=== PATIENT | female | born 1950 | race Caucasian/White ===

== ENCOUNTER 2020-02-12 07:45 | Outpatient (REF) | payer MEDICARE, OTHER, SELFPAY ==
[2020-02-12 11:27] LABS: MANUAL DIFF FLAG NO
[2020-02-12 11:32] LABS: Basophils Absolute Auto 0.1 X10*3/uL (0.0-0.2); Basophils Percent Auto 0.8 % (0-2); Eosinophils Absolute Auto 0.3 X10*3/uL (0.0-0.4); Eosinophils Percent Auto 4.2 % (0-4); Hematocrit 44.3 % (37-47); Hemoglobin 14.6 g/dl (12.0-16.0); Imm Gran Abs Auto 0.03 X10*3/uL (0.00-0.03); Imm Gran Pct Auto 0.5 % (0.0-0.4); Lymphocytes Absolute Auto 1.3 X10*3/uL (1.2-4.9); Lymphocytes Percent Auto 22.1 % (20-40); Mean Corpuscular Hemoglobin 31.4 pg (27.0-33.0); Mean Corpuscular Volume 95.3 fL (80-98); Mean Platelet Volume 11.5 fL (9.4-12.3); Monocytes Absolute Auto 0.6 X10*3/uL (0.1-1.2); Monocytes Percent Auto 9.7 % (2-11); Neutrophils Absolute Auto 3.7 X10*3/uL (2.0-8.3); Neutrophils Percent Auto 62.7 % (45-73); Platelet Count 184 X10*3/uL (160-400); Red Blood Count 4.65 X10*6/uL (4.20-5.50); Red Cell Distribution Width 13.4 % (11.0-16.0)
[2020-02-12 11:55] LABS: Estimated Average Glucose 131 mg/dL; Hemoglobin A1c % 6.2 %
[2020-02-12 12:19] LABS: Alanine Aminotransferase 21 U/L (0-31); Albumin Level 3.8 g/dL (3.5-5.0); Alkaline Phosphatase 66 U/L (39-117); Anion Gap 14 (12-20); Aspartate Amino Transferase 21 U/L (5-31); Bilirubin Total 0.6 mg/dL (0.0-1.0); Blood Urea Nitrogen 23 mg/dL (9-16); Calcium 9.4 mg/dL (8.4-10.2); Carbon Dioxide 30 mmol/L (22-29); Chloride 103 mmol/L (96-108); Cholesterol 174 mg/dL; Estimated Glomerular Filt Rate > 60; Glucose Fasting 91 mg/dL (60-99); HDL Cholesterol 38 mg/dL; LDL Cholesterol Calculated 99 mg/dl; Potassium 4.8 mmol/l (3.3-5.1); Sodium 142 mmol/L (135-145); Total Protein 6.2 g/dL (6.5-8.0); Triglycerides 186 mg/dL
== END 2020-02-12 07:46 | disposition home or self-care (01) ==
LOC: HO.MANLDS 07:45
PROVIDERS: PCP Internal Medicine; Visit Provider Internal Medicine
DX: R73.01 Impaired fasting glucose (principal); I10 Essential (primary) hypertension
CPT/HCPCS: 36415; 80053; 80061; 83036; 85025

== ENCOUNTER 2020-09-10 08:35 | Outpatient (REF) | payer MEDICARE, OTHER, SELFPAY ==
[2020-09-10 11:54] LABS: Alanine Aminotransferase 14 U/L (0-31); Albumin Level 3.9 g/dL (3.5-5.0); Alkaline Phosphatase 61 U/L (39-117); Anion Gap 11 (12-20); Aspartate Amino Transferase 22 U/L (5-31); Bilirubin Total 0.8 mg/dL (0.0-1.0); Blood Urea Nitrogen 20 mg/dL (9-16); Calcium 9.5 mg/dL (8.4-10.2); Carbon Dioxide 33 mmol/L (22-29); Chloride 102 mmol/L (96-108); Cholesterol 180 mg/dL; Estimated Glomerular Filt Rate 58; Glucose Fasting 88 mg/dL (60-99); HDL Cholesterol 45 mg/dL; LDL Cholesterol Calculated 100 mg/dl; Potassium 4.5 mmol/L (3.3-5.1); Sodium 141 mmol/L (135-145); Total Protein 6.3 g/dL (6.5-8.0); Triglycerides 175 mg/dL
[2020-09-10 12:00] LABS: Free T4 (Free Thyroxine) 0.86 ng/dL (0.71-1.85); Thyroid Stimulating Hormone 0.59 uIU/mL (0.32-4.0)
== END 2020-09-10 08:36 | disposition home or self-care (01) ==
LOC: HO.MANLDS 08:35
PROVIDERS: PCP Internal Medicine; Visit Provider Physician Assistant
DX: I48.91 Unspecified atrial fibrillation (principal); E03.9 Hypothyroidism, unspecified; R73.01 Impaired fasting glucose
CPT/HCPCS: 36415; 80053; 80061; 83735; 84439; 84443

== ENCOUNTER 2021-08-04 07:58 | Outpatient (REF) | payer MEDICARE, OTHER, SELFPAY ==
[2021-08-04 11:01] LABS: Hematocrit 47.3 % (37.0-47.0); Hemoglobin 15.1 g/dl (12.0-16.0); Mean Corpuscular HGB Conc 31.9 g/dl (31.0-35.0); Mean Corpuscular Hemoglobin 30.9 pg (27.0-33.0); Mean Corpuscular Volume 96.7 fL (80.0-98.0); Mean Platelet Volume 11.6 fL (9.4-12.3); Platelet Count 147 X10*3/uL (160-400); Red Blood Count 4.89 X10*6/uL (4.20-5.50); Red Cell Distribution Width 13.3 % (11.0-16.0); White Blood Count 7.3 X10*3/uL (4.8-10.8)
[2021-08-04 11:18] LABS: Estimated Average Glucose 131 mg/dL; Hemoglobin A1c % 6.2 %
[2021-08-04 11:56] LABS: Alanine Aminotransferase 17 U/L (0-31); Albumin Level 4.2 g/dL (3.5-5.0); Alkaline Phosphatase 55 U/L (39-117); Anion Gap 13 (12-20); Aspartate Amino Transferase 21 U/L (5-31); Bilirubin Total 0.7 mg/dL (0.0-1.0); Blood Urea Nitrogen 27 mg/dL (9-16); Calcium 10.4 mg/dL (8.4-10.2); Carbon Dioxide 32 mmol/L (22-29); Chloride 101 mmol/L (96-108); Cholesterol 185 mg/dL; Estimated Glomerular Filt Rate 52; Glucose Fasting 91 mg/dL (60-99); HDL Cholesterol 44 mg/dL; LDL Cholesterol Calculated 97 mg/dl; Potassium 4.8 mmol/L (3.3-5.1); Sodium 141 mmol/L (135-145); Triglycerides 221 mg/dL
[2021-08-04 12:18] LABS: Vitamin D 25-OH Total 36.1 ng/mL (>30)
[2021-08-04 12:23] LABS: Vitamin B12 414 pg/mL (200-900)
== END 2021-08-04 07:59 | disposition home or self-care (01) ==
LOC: HO.MANLDS 07:58
PROVIDERS: PCP Internal Medicine; Visit Provider Internal Medicine
DX: R73.01 Impaired fasting glucose (principal)
CPT/HCPCS: 36415; 80053; 80061; 82306; 82607; 83036; 83735; 84443; 85027

== ENCOUNTER 2023-02-18 08:02 | Outpatient (REF) | payer MEDICARE, OTHER, SELFPAY ==
[2023-02-18 13:35] LABS: MANUAL DIFF FLAG NO
[2023-02-18 13:44] LABS: Basophils Absolute Auto 0.1 X10*3/uL (0.0-0.2); Eosinophils Absolute Auto 0.3 X10*3/uL (0.0-0.4); Eosinophils Percent Auto 4.6 % (0-4); Hematocrit 40.7 % (37.0-47.0); Hemoglobin 12.6 g/dl (12.0-16.0); Imm Gran Abs Auto 0.02 X10*3/uL (0.00-0.03); Imm Gran Pct Auto 0.3 % (0.0-0.4); Lymphocytes Absolute Auto 1.3 X10*3/uL (1.2-4.9); Lymphocytes Percent Auto 18.3 % (20-40); Mean Corpuscular Hemoglobin 28.8 pg (27.0-33.0); Mean Corpuscular Volume 93.1 fL (80.0-98.0); Mean Platelet Volume 12.1 fL (9.4-12.3); Monocytes Absolute Auto 0.7 X10*3/uL (0.1-1.2); Monocytes Percent Auto 10.4 % (2-11); Neutrophils Absolute Auto 4.5 x10*3/uL (2.0-8.3); Neutrophils Percent Auto 65.4 % (45-73); Platelet Count 193 X10*3/uL (160-400); Red Blood Count 4.37 X10*6/uL (4.20-5.50); Red Cell Distribution Width 17.3 % (11.0-16.0); White Blood Count 6.9 X10*3/uL (4.8-10.8)
[2023-02-18 14:30] LABS: Estimated Average Glucose 131 mg/dL; Hemoglobin A1c % 6.2 % (<6.0)
[2023-02-18 14:34] LABS: Alanine Aminotransferase 16 U/L (0-31); Alkaline Phosphatase 62 U/L (39-117); Anion Gap 16 (12-20); Aspartate Amino Transferase 26 U/L (5-31); Bilirubin Total 0.5 mg/dL (0.0-1.0); Blood Urea Nitrogen 29 mg/dL (9-16); Calcium 10.7 mg/dL (8.4-10.2); Carbon Dioxide 29 mmol/L (22-29); Chloride 102 mmol/L (96-108); Cholesterol 175 mg/dL (<200); Estimated Glomerular Filt Rate 43; Glucose Random 109 mg/dL (60-115); HDL Cholesterol 41 mg/dL (>40); LDL Cholesterol Calculated 92 mg/dL (<100); Magnesium 2.1 mg/dL (1.6-2.6); Potassium 4.5 mmol/L (3.3-5.1); Sodium 142 mmol/L (135-145); Triglycerides 211 mg/dL (<150)
[2023-02-18 14:37] LABS: Thyroid Stimulating Hormone 0.91 uIU/mL (0.32-4.0); Vitamin D 25-OH Total 66.9 ng/mL (>30)
== END 2023-02-18 08:03 | disposition home or self-care (01) ==
LOC: HO.MANLDS 08:02
PROVIDERS: Visit Provider Internal Medicine
DX: R73.01 Impaired fasting glucose (principal); I48.91 Unspecified atrial fibrillation; E55.9 Vitamin D deficiency, unspecified
CPT/HCPCS: 36415; 80053; 80061; 82306; 83036; 83735; 84443; 85025

== ENCOUNTER 2023-08-05 08:34 | Outpatient (REF) | payer MEDICARE, OTHER, SELFPAY ==
[2023-08-05 13:34] LABS: Estimated Average Glucose 151 mg/dL; Hemoglobin A1c % 6.9 % (<6.0)
[2023-08-05 14:37] LABS: Free T4 (Free Thyroxine) 1.04 ng/dL (0.71-1.85); Thyroid Stimulating Hormone 0.78 uIU/mL (0.32-4.0); Vitamin D 25-OH Total 44.3 ng/mL (>30)
[2023-08-05 14:47] LABS: Folate 10.6 ng/mL (> or = 4.0); Vitamin B12 > 2000 pg/mL (200-900)
== END 2023-08-05 08:35 | disposition home or self-care (01) ==
LOC: HO.MANLDS 08:34
PROVIDERS: Visit Provider Internal Medicine
DX: E03.9 Hypothyroidism, unspecified (principal); E55.9 Vitamin D deficiency, unspecified; R73.01 Impaired fasting glucose
CPT/HCPCS: 36415; 82306; 82607; 82746; 83036; 84439; 84443

== ENCOUNTER 2023-11-21 08:10 | Outpatient (REF) | payer MEDICARE, OTHER, SELFPAY ==
[2023-11-21 13:52] LABS: Alanine Aminotransferase 14 U/L (0-31); Albumin Level 3.9 g/dL (3.5-5.0); Alkaline Phosphatase 46 U/L (39-117); Anion Gap 14 (12-20); Aspartate Amino Transferase 22 U/L (5-31); Bilirubin Total 0.5 mg/dL (0.0-1.0); Blood Urea Nitrogen 37 mg/dL (9-16); Calcium 10.4 mg/dL (8.4-10.2); Carbon Dioxide 29 mmol/L (22-29); Chloride 104 mmol/L (96-108); Estimated Glomerular Filt Rate 32; Glucose Random 92 mg/dL (60-115); Phosphorus 3.1 mg/dL (2.7-4.5); Potassium 4.3 mmol/L (3.3-5.1); Sodium 143 mmol/L (135-145); Total Protein 6.5 g/dL (6.5-8.0)
[2023-11-21 13:58] LABS: Thyroid Stimulating Hormone 0.95 uIU/mL (0.32-4.0)
[2023-11-21 14:04] LABS: Parathyroid Hormone Intact 23.3 pg/mL (8.7-77.1)
== END 2023-11-21 08:11 | disposition home or self-care (01) ==
LOC: HO.MANLDS 08:10
PROVIDERS: Visit Provider Internal Medicine
DX: Z13.89 Encounter for screening for other disorder (principal)
CPT/HCPCS: 36415; 80053; 83970; 84100; 84439; 84443

== ENCOUNTER 2023-12-26 14:51 | Outpatient (REF) | payer MEDICARE, OTHER, SELFPAY ==
[2023-12-26 18:17] LABS: Alanine Aminotransferase 12 U/L (0-31); Albumin Level 4.2 g/dL (3.5-5.0); Alkaline Phosphatase 67 U/L (39-117); Anion Gap 16 (12-20); Aspartate Amino Transferase 21 U/L (5-31); Bilirubin Total 0.4 mg/dL (0.0-1.0); Blood Urea Nitrogen 33 mg/dL (9-16); Carbon Dioxide 29 mmol/L (22-29); Chloride 100 mmol/L (96-108); Estimated Glomerular Filt Rate 33; Glucose Random 147 mg/dL (60-115); Potassium 5.3 mmol/L (3.3-5.1); Sodium 140 mmol/L (135-145); Total Protein 7.4 g/dL (6.5-8.0)
[2023-12-26 18:25] LABS: Vitamin D 25-OH Total 46.4 ng/mL (>30)
== END 2023-12-26 14:52 | disposition home or self-care (01) ==
LOC: HO.MANLDS 14:51
PROVIDERS: Visit Provider Internal Medicine
DX: E83.52 Hypercalcemia (principal)
CPT/HCPCS: 36415; 80053; 82306

== ENCOUNTER 2024-08-14 14:36 | Outpatient (REF) | payer MEDICARE, OTHER, SELFPAY ==
--- OUTSIDE RECORDS SUMMARY | 2024-08-14 17:46 | XMS_ITS | Continuity of Care Document ---
Author Organization [facility], [facility] Address [address] [place] [address] [place] [address] Assessment Encounter Date Assessment Date Assessment LastModified by Organization Details LastModified Time 08/14/2024 08/14/2024 Patient presente d to office today for their Medicare Annual Wellness Visit. Education was provided on healthy nutrition, including a diet rich in fruits and vegetables, minimizing simple carbohydrates, salt, and saturated fats. Encouraged regular cardiovascular exercise such as walking at least 30 minutes daily, 5 times per week. Emphasized preventive health measures and educated pt on fall prevention and community-based lifestyle interventions to help reduce health risks and promote healthy living. [email or web address] Not available 06/12/2024 09:18:10 Plan of Treatment Reminders Order Date Submit Date Provider Last Modified By Organization Details Last Modified Time Details Appointments MEDICARE ANNUAL WELLNESS 2024 02:00P M DR NAVARRO Not available Not available Not available FOLLOW UP 15 [address] NAVARRO Not available Not available Not available MEDICARE ANNUAL WELLNESS [address] NAVARRO Not available Not available Not available Lab HbA1c (hemoglob in A1c), blood 2024 025 [facility], [address] [place] [address], [place], [address], 08/14/2024 14:37:51 CBC w/ auto diff 2024 025 [facility], [address] [place] [address], [place], [address], 08/14/2024 14:37:52 CMP, serum or plasma 2024 025 [facility], [address] [place] [address], [id number], 08/14/2024 14:37:51 lipid panel, blood 2024 025 [facility], [address] [place] [address], [id number], 08/14/2024 14:37:51 CBC 2024 [facility], [address] [place] [address], [id number], 08/14/2024 14:37:51 vitamin B12, serum 2024 025 [facility], [address] [place] [address], [id number], 08/14/2024 14:37:52 TSH, serum or plasma 2024 025 [facility], [address] [place] [address], [id number], 08/14/2024 14:37:51 Referral None recorded. Procedures None recorded. Surgeries None recorded. Imaging MAMMO, screening , digital, bilateral 2024 025 [email or web address] [facility], [address] [place] [address], [id number], 08/14/2024 14:48:52 bone density 2024 025 [facility], [address] [place], [address], 08/14/2024 14:48:52 Medication Orders None recorded. Patient TargetsNo targets recorded. Patient Instructions Encounter Date Encounter Id Patient Instructions Last Modified By Organization Details Last Modified Time 08/14/2024 [id number] learning about type 2 diabetes Not available 08/14/2024 14:31:39 type 2 diabetes: care instructions Not available 08/14/2024 14:31:40 advance care planning: care instructions Not available 08/14/2024 14:31:40 atrial fibrillation: care instructions Not available 08/14/2024 14:31:40 hypothyroidism: care instructions Not available 08/14/2024 14:31:40 Discussed and explained advance directives such as standard forms to the {{patient* caregi josefina patient and caregiver}}. Face to face discussion lasted for a duration of _55__ minutes. Not available 08/14/2024 14:31:22 Reason for Referral None Reported. Problems Name Problem SNOMED Code Status Onset Date Resolution Date Notes Provider Name and Address Organization Details Recorded Time Osteoart hritis of knee 883200774 Active 2017 Not Available [facility] 0 02:44:19 [facility] hyperten jina 52285245 Active 2017 Not Available [facility] 0 02:44:19 Impaired fasting glycemia 646706023 Active 2017 Not Available [facility] 0 02:44:19 Atrial fibrilla tion 59750916 Active 2017 coumadin managed Not Available [facility] 0 02:44:19 Helicoba cter pylori gastroin testinal tract infectio n 254521311 Active 2017 Not Available [facility] 0 02:44:19 Bradyarr hythmia 447042248 Active 2017 Not Available [facility] 0 02:44:19 Sick sinus syndrome 66328018 Active 2017 Not Available [facility] 0 02:44:19 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 Not Available [facility] 0 02:44:19 Divertic ular disease 875828874 Active 2017 Not Available [facility] 0 02:44:19 History of tobacco use 37869930408 03 Active 2017 1980s Not Available [facility] 0 02:44:19 History of cardiove rsion 17894946319 108 Active 2017 with pacemaker 2016 Not Available [facility] 0 02:44:19 Pulmonar y hyperten jina 69609455 Active 2018 Not Available [facility] 0 02:44:19 Peripros thetic fracture of hip 85194649552 914567 Active 2021 JORY JANG [address] [place], [address], [facility] 2 15:31:41 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 Bill Navarro, DO [address] [place] [address], [phone], [facility] 2 16:00:05 Secondar y peripher al neuropat hy 047997 Active 2022 Bill Navarro, DO [address] [place] [address], [address], [facility] 3 11:35:16 Asthmati c bronchit is 543788111 Active 2022 Bill Navarro, DO [address] [place] [address], [address], [facility] 3 14:55:21 Chronic bronchit is 10104826 Active 2022 Bill Navarro, DO [address] [place] [address], [address], [facility] 3 11:48:43 Vitamin D deficien cy 00815994 Active 2022 Bill Navarro, DO [address] [place] [address], [address], [facility] 3 11:13:55 Orthosta tic hypotens ion 11136633 Active 2022 Bill Navarro DO [address] [place], [address], [facility] 3 11:15:54 Postural orthosta tic tachycar karla syndrome 259056073 Active 2022 Bill Navarro, DO [address] [place] [address], [address], [facility] 3 11:05:54 Degenera tive joint disease of hand 39911504 Active 2023 Bill Navarro, DO [address] [place] [address], [address], [facility] 4 11:17:50 Type 2 diabetes mellitus 52275687 Active 2023 JORY JANG [address] [place] [address], [address], [facility] 4 11:05:39 Hypercal cemia 96598612 Active 2023 Bill Navarro DO [address] [place] [address], [address], [facility] 4 20:58:24 Renal insuffic iency 672811884 Active 2023 Bill Navarro, DO [address] [place] [address], [address], [facility] 4 12:08:05 Cellulit is of toe of left foot Active 2023 JORY JANG [address] [place] [address], [address], [facility] 4 11:50:11 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 Procedures Surgical History Date Name Laterality Status Provider Name and Address Organization Details Recorded Time 018 Corticosteroid Injection completed Bill Navarro DO [address] [place] [address], [address], [facility] 02/03/2018 12:01:37 018 Corticosteroid Injection completed Bill Navarro DO [address] [place] [address], [phone], [facility] 09/19/2017 14:20:40 Imaging Results None recorded. Procedure Notes None recorded. Medical Equipment None Reported. Allergies Allergen ID Allergen Name Allergen Category Reaction Reaction Severity Criticality Documentation Date Start Date Code Code System Note Provider Name and Address Organization Details Recorded Time 303 lisinopri l medicatio n Not available Not available Not available 07/12/2017 53592 [facility] 8 10:24[facility]13 304 albuterol medicatio n Not available Not available [facility] 07/12/2017 435 RxNorm hx afib not an aller gy Bill GwenFaith Florentinclaudia, DO [address] [place] [address], [address], [facility] 3 22:04:28 305 flecainid e medicatio n Not available Not available Not available 07/12/2017 4441 [facility] 8 10:24:25 4150 Multaq medicatio n edema severe Not available 02/27/2020 23287 9 RxNorm Bill HidalgoFaith Ganesh DO [address] [place] [address], [address], [facility] 0 12:15:24 4151 diltiazem Not available edema severe Not available 02/27/2020 3443 RxNorm Bill HidalgoFaith Lermaclaudia DO [address] [place] [address], [address], [facility] 0 12:15:40 8511 pregabali n medicatio n Not available Not available Not available 03/20/2024 62193 2 RxNorm JORY JANG [address] [place], [address], [facility] 4 11:51:36 Medications Name Sig Start Date Stop Date Status Note LastModified by Organization Details LastModified Time amoxicillin 500 mg capsule TAKE 1 CAPSULE BY MOUTH THREE TIMES DAILY FOR 10 DAYS 08/02 completed Not Available Not Available Not Available furosemide 40 mg tablet TAKE 1 TABLET BY MOUTH DAILY active Not Available Not Available No t Available prednisone 10 mg tablet 08/14 completed Not Available Not Available Not Available azithromyci n 250 mg tablet TAKE 2 TABLETS BY MOUTH ON DAY 1 THEN TAKE 1 TABLET BY MOUTH ONCE FOR 4 DAYS 08/10 completed Not Available Not Available Not Available metoprolol tartrate 100 mg tablet Take 1 tablet every day by oral route. 09/02 completed Not Available Not Available Not Available fluconazole 150 mg tablet TAKE 1 TABLET BY MOUTH EVERY DAY FOR 7 DAYS active Not Available Not Available No t Available amiodarone 200 mg tablet 08/02 completed Not Available Not Available Not Available benzonatate 200 mg capsule TAKE 1 CAPSULE BY MOUTH THREE TIMES DAILY 08/02 completed Not Available Not Available Not Available metoprolol succinate ER 200 mg tablet,exte nded release 24 hr 02/26 completed Not Available Not Available Not Available dofetilide 250 mcg capsule TAKE 1 CAPSULE BY MOUTH TWICE DAILY 08/02 completed Not Available Not Available Not Available sulfamethox azole 800 mg-trimetho prim 160 mg tablet 08/14 completed Not Available Not Available Not Available tramadol 50 mg tablet TAKE 1 TO 2 TABLETS BY MOUTH EVERY 6 HOURS NEEDED FOR MILD PAIN. DO NOT EXCEED 8 TABLETS (400MG) PER DAY. 12/21 completed Not Available Not Available Not Available ketorolac 0.5 % eye drops PLACE 1 DROP IN SURGICAL EYE THREE TIMES A DAY FOR 3 WEEKS FOLLOWING CATARACT SURGERY IN EACH EYE active Not Available Not Available No t Available amoxicillin 875 mg tablet TAKE 1 TABLET BY MOUTH EVERY 12 HOURS FOR 10 DAYS 04/08 /2025 completed Not Available Not Available Not Available hydromorpho ne 2 mg tablet TAKE 1 TO 2 TABLETS BY MOUTH EVERY 4 HOURS NEEDED FOR MODERATE TO SEVERE PAIN 12/21 completed Not Available Not Available Not Available magnesium oxide 400 mg (241.3 mg magnesium) tablet TAKE 1 TABLET BY MOUTH DAILY active Not Available Not Available No t Available Aldactone 25 mg tablet Take 1 tablet every day by oral route. 02/23 completed Not Available Not Available Not Available levothyroxi ne 50 mcg tablet TAKE 1 TABLET BY MOUTH DAILY active Not Available Not Available No t Available pantoprazol e 40 mg tablet,mazin yed release take 1 tablet by mouth once daily 08/14 completed Not Available Not Available Not Available gabapentin 300 mg capsule TAKE 1 CAPSULE BY MOUTH THREE TIMES DAILY active Not Available Not Available No t Available cephalexin 500 mg tablet TAKE 1 TABLET BY MOUTH EVERY 6 HOURS FOR 12 DAYS 08/14 completed Not Available Not Available Not Available diltiazem CD 120 mg capsule,ext ended release 24 hr 02/26 completed Not Available Not Available Not Available codeine 10 mg-guaifene sin 100 mg/5 mL oral liquid TAKE 10 ML BY MOUTH EVERY 4 HOURS NEEDED 08/14 completed Not Available Not Available Not Available digoxin 125 mcg (0.125 mg) tablet Take 1 tablet every day by oral route for 90 days. 02/26 completed Not Available Not Available Not Available gabapentin 100 mg capsule TAKE 1 CAPSULE BY MOUTH EVERY MORNING active Not Available Not Available No t Available warfarin 1 mg tablet 11/22 completed Not Available Not Available Not Available levofloxaci n 500 mg tablet TAKE 1 TABLET BY MOUTH EVERY 24 HOURS FOR 10 DAYS 08/02 completed Not Available Not Available Not Available methylpredn isolone 4 mg tablets in a dose pack FOLLOW PACKAGE DIRECTION S 08/02 completed Not Available Not Available Not Available SSD 1 % topical cream APPLY A 1/16 INCH (1.5 MM) THICK LAYER TO ENTIRE BURN AREA BY TOPICALRO TRACEY 2 TIMES PER DAY 07/24 completed Not Available Not Available Not Available spironolact one 50 mg tablet TAKE 1 TABLET BY MOUTH EVERY DAY active Not Available Not Available No t Available Vitamin C 500 mg capsule,ext ended release Take 1 capsule every day by oral route. active Not Available Not Available No t Available enoxaparin 30 mg/0.3 mL subcutaneou s syringe 11/22 completed Not Available Not Available Not Available metoprolol tartrate 25 mg tablet Take 1 tablet twice a day by oral route for 90 days. 02/26 completed Not Available Not Available Not Available levalbutero l HFA 45 mcg/actuati on aerosol inhaler 08/13 completed Not Available Not Available Not Available Boostrix Tdap 2.5 Lf unit-8 mcg-5 Lf/0.5 mL intramuscul ar syringe 09/02 completed Not Available Not Available Not Available pregabalin 75 mg capsule TAKE 1 CAPSULE BY MOUTH TWICE DAILY 03/13 completed Not Available Not Available Not Available melatonin 25mg at bedtime active Not Available Not Available No t Available calcium 1000 units every day. 11/21 completed Not Available Not Available Not Available vitamin B complex once per day 08/13 completed Not Available Not Available Not Available furosemide 20 mg active Not Available Not Av ailable Not Available multivitami n once per day active Not Available Not Available No t Available Symbicort 160 mcg-4.5 mcg/actuati on HFA aerosol inhaler INHALE 1 PUFF INTO THE LUNGS TWICE A DAY FOR 30 DAYS 08/02 completed Not Available Not Available Not Available diclofenac 1 % topical gel 02/26 completed Not Available Not Available Not Available Multaq 400 mg tablet 02/26 completed Not Available Not Available Not Available Pradaxa 150 mg capsule TAKE 1 CAPSULE BY MOUTH TWICE DAILY active Not Available Not Available No t Available Pradaxa 75 mg capsule TAKE 1 CAPSULE BY MOUTH TWO TIMES A DAY FOR 7 DAYS THEN INCREASE TO HOME DOSE OF 150 MG TWO TIMES A DAY 12/21 completed Not Available Not Available Not Available Breo Ellipta 100 mcg-25 mcg/dose powder for inhalation INHALE 1 PUFF BY MOUTH EVERY DAY 08/02 completed Not Available Not Available Not Available Digox 250 mcg (0.25 mg) tablet Take one tablet every day. 07/24 completed Not Available Not Available Not Available metoprolol tartrate 75 mg tablet TAKE 1 TABLET BY MOUTH TWICE DAILY 2024 active Not Available Not Available Not Avai lable Trelegy Ellipta 100 mcg-62.5 mcg-25 mcg powder for inhalation INHALE 1 PUFF INTO THE LUNGS EVERY DAY active Not Available Not Available No t Available Shingrix (PF) 50 mcg/0.5 mL intramuscul ar suspension, kit 02/26 completed Not Available Not Available Not Available Ozempic 0.25 mg or 0.5 mg (2 mg/1.5 mL) subcutaneou s pen injector Inject 0.25 mg every week by subcutane ous route for 30 days. 2023 active Not Available Not Available Not Avai lable Wixela Inhub 100 mcg-50 mcg/dose powder for inhalation Inhale 1 puff twice a day by inhalatio n route. 08/30 completed Not Available Not Available Not Available BinaxNOW COVID-19 Ag Self Test kit TEST DIRECTED TODAY 03/16 completed Not Available Not Available Not Available Ozempic 0.25 mg or 0.5 mg (2 mg/3 mL) subcutaneou s pen injector active Not Available Not Available Not Available Vitals Date Recorded Body height Body mass index (BMI) Body weight Heart rate Oxygen saturation Oxygen saturation in Arterial blood by Pulse oximetry Systolic blood pressure Diastolic blood pressure Provider Name and Address Organization Details Last Updated DateTime 5 163.83 cm 40.1 kg/m2 984044. 39 g 80 /min 93 % 93 % 120 mm[Hg] 68 mm[Hg] Mandi Mack [facility] 5 13:57:34 Social History Question Answer Notes LastModified by Organizat ion Details LastModified Time Tobacco Smoking Status Former Smoker Not Available [facility] 03/11/2020 03:36:23 What Was The Date Of Your Most Recent Tobacco Screening? 08/14/2024 [email or web address] Information not available 08/14/2024 Do You Or Have You Ever Used Any Other Forms Of Tobacco Or Nicotine? No [email or web address] Information not available 02/06/2024 Sex: Unknown Functional Status None recorded. Mental Status None recorded. Family History Nothing Reported. Medical History No medical history recorded. Gynecological HistoryNo gynecological history recorded. Obstetrics History GPAL:G 0 P 0 0 0 0 Immunizations Vaccine Type Date Status Note Provider Nam e and Address Organization Details Recorded Time Influenza, split virus, quadrivalent, preservative 1 completed [facility] 08/13/2022 11:22:35 Influenza, split virus, quadrivalent, preservative 2 completed Marianna Gencarelle null, [facility] 08/13/2022 11:22:35 Influenza, split virus, quadrivalent, preservative 8 completed Marianna Gencarelle null, [facility] 08/13/2022 11:22:35 Influenza, split virus, quadrivalent, preservative 9 completed Marianna Gencarelle null, [facility] 08/13/2022 11:22:35 zoster, unspecified formulation 9 completed Marianna Gencarelle null, [facility] 08/13/2022 11:22:35 Influenza, split virus, quadrivalent, preservative 0 completed Marianna Gencarelle null, [facility] 08/13/2022 11:22:35 zoster recombinant 0 completed Marianna Gencarelle null, [facility] 08/13/2022 11:22:35 Tdap 0 completed Melany Johnson [facility] 02/29/2020 13:38:26 Pneumococcal conjugate PCV 13 6 completed Marianna Gencarelle [facility] 08/13/2022 11:22:35 Tdap 4 completed Melany sanches, [facility] 01/04/2018 09:42:45 zoster, unspecified formulation 4 completed Marianna Gencarelle null, [facility] 08/13/2022 11:22:35 pneumococcal polysaccharide PPV23 9 completed Marianna Gencarelle null, [facility] 08/13/2022 11:22:35 COVID-19, mRNA, LNP-S, PF, 100 mcg/0.5mL dose or 50 mcg/0.25mL dose 1 completed Marianna Gencarelle null, [facility] 08/13/2022 11:22:35 COVID-19, mRNA, LNP-S, PF, 100 mcg/0.5mL dose or 50 mcg/0.25mL dose 1 completed Marianna sanches [facility] 08/13/2022 11:22:35 Past Encounters Encounter ID Performer Location Encounter Start Date Encounter Closed Date Diagnosis/Indication Diagnosis SNOMED-CT Code Diagnosis ICD10 Code Diagnosis Note [id number] Bill Navarro DO [facility] [address],[place] [address] 08/14/2024 13:42:15 08/14/2024 14:48:52 Adult health examination 512158479 Z00.00 doing ok ecxcept for her foot still an issue doesnt want surgery wishes to cont Screening for cardiovascular system disease 153079149 Z13.6 Screening for osteoporosis 144068431 Z13.820 Screening mammography 24 810992 Z12.31 Atrial fibrillation 4943 6004 I48.0 currently has been sporadic episodes at best last a few sec PRIOR last visit: as noted she was really dong well and despite the severe trauma of the femur fractureno w she is on dofetilide for anti arrythmic and she seems to think it is causing a neuropathy of her feet and fingersPRI OR: now had av maryellen; ablation now with pacemaker and tikosyn (dofetilid e) per cardiol and has been stableas noted we will ask cardio re-stoppin g the tikosyn as discussed she stacy ask but will not stop the tikosyn until told to do sotikosyn is per pt bothering her some but cardiology did not want to stop this Essential hypertension 38484470 I10 stable and has decent med regimen Hypothyroidism 65874465 E03.9 -continue levothyrox ine and is going to need a follow up lab Neuropathy due to type 2 diabetes mellitus 7814054999 70376 E11.42 unfortunat [place] not having any luck with the meds Type 2 karla betes mellitus 16325734 E11.9 a1c is still pending Health Concerns Section Related Observation LastModified by Organization Detai ls LastModified Time None Recorded Concern Status LastModified by Organization Details LastModified Time None Recorded Payers Encounter Date Sequence Insurance Name Policy Number Policy Bravo Covered Member ID Bravo Member ID Guarantor Name 08/14/2024 1 [place] [employer] Sravani Borrego [id number] Sravani Borrego 08/14/2024 2 [facility] [id number] Sravani Borrego [id number] Sravani Borrego Notes Date Note Type Note Provider Name a nd Address Organization Details Recorded Time 5 text/html Medicare Annual Wellness VisitReported bypatient.Diet and Nutrition:healthy diet Fracture Risk:no history of fractures; no recent explained fracture; no sudden unexplained fractures; no previous musculoskeletal injuries Physical Activity:exercises on a regular basis; recent increase in physical activity; good physical condition Depression Risk:never feels sad, empty, or tearful; no loss of interest in activities; no significant changes in weight; no sleep disturbances or insomnia; no agitation; no loss of energy; no feelings of worthlessness or guilt; no thoughts of suicide; no history of depression; no history of mood disorders Orientation:no disorientation to time; no disorientation to date; no disorientation to place Concentration and Memory:no decreased concentrating ability; no memory lapses or loss; does not forget words Speech/Motor difficulties:no speech difficulties; no difficulty expressing formulated concepts; no difficulty with fine manipulative tasks; no difficulty writing/copying; no slowed reaction time; does not knock things over when trying to pick them up Hearing:no loss of hearing Vision:no vision problems Activities of Daily Living:able to bathe with limited or no assistance; able to contol urination and bowels; able to dress with limited or no assistance; able to feed self with limited or no assistance; able to get out of chair or bed with limited or no assistance; able to groom with limited or no assistance; able to toilet with limited or no assistance Instrumental Activities of Daily Living:able to do house work with limited or no assistance; able to grocery shop with limited or no assistance; able to manage medications with limited or no assistance; able to manage money with limited or no assistance; able to prepare meals with limited or no assistance; able to use the phone with limited or no assistance Falls Risk Assessment:no frequent falls while walking; no fall in the past year; no fall since last visit; no dizziness/vertigo Home Safety:no unsafe alfred hazzards; no unsafe stairs; no unsafe gas appliances; working smoke/CO detectors; wears protective head gear for biking/high velocity; use of seatbelts; practicing 'safer sex'; no vision or hearing loss while driving; no fire arms; has hand bars in the bathroom/shower; good lighting in the home here for mwv and is doing pretty goodtroubled by her bunion in left foot using silvadene with good response Bill Navarro, DO [address], [place], [address], [facility] 08/14/2024 14:35:08 OBGyn Episode No OBEpisode recorded.
--- OUTSIDE RECORDS SUMMARY | 2024-08-14 17:46 | XMS_ITS | Data Portability ---
Author Organization [facility] Address [address] [place] [address] Assessment Encounter Date Assessment Date Assessment LastModified by Organization Details LastModified Time 11/22/2023 11/22/2023 [id number] [place] [id number] (BOLT MAN) [facility] MODERATE MUST MEET 2 OUT OF 3 ELEMENTS: PROBLEMS, DATA OR RISK ELEMENT 1: PROBLEMS ADDRESSED 1 OR MORE CHRONIC ILLNESS WITH EXACERBATION OR 2 OR MORE STABLE CHRONIC ILLNESSES OR 1 UNDIAGNOSED NEW PROBLEM OR 1 ACUTE ILLNESS W/SYMPTOMS OR 1 ACUTE COMPLICATED INJURY ELEMENT 2: DATA MUST MEET 1 OF 3 CATEGORIES CATEGORY 1: REVIEW OF PRIOR EXTERNAL NOTES, REVIEW OF RESULTS, ORDERING OF EACH TEST, ASSESSMENT REQUIRING INDEPENDENT HISTORIAN OR CATEGORY 2: INDEPENDENT INTERPRETATION OF TESTS BY ANOTHER PHYSICIAN OR SPECIALIST OR CATEGORY 3: DISCUSSION OF MGT OR TEST INTERPRETATION W/EXTERNAL PHYSICIAN OR SPECIALIST ELEMENT 3: RISK RISK OF COMPLICATIONS AND/OR MORBIDITY OR MORTALITY OF PATIENT MANAGEMENT PROVIDER MUST THOROUGHLY DOCUMENT EACH ELEMENT THAT IS COVERED Not available 11/22/2023 14:04:40 02/06/2024 02/06/2024 [id number] [place] [id number] (BOLT MAN) [facility] MODERATE MUST MEET 2 OUT OF 3 ELEMENTS: PROBLEMS, DATA OR RISK ELEMENT 1: PROBLEMS ADDRESSED 1 OR MORE CHRONIC ILLNESS WITH EXACERBATION OR 2 OR MORE STABLE CHRONIC ILLNESSES OR 1 UNDIAGNOSED NEW PROBLEM OR 1 ACUTE ILLNESS W/SYMPTOMS OR 1 ACUTE COMPLICATED INJURY ELEMENT 2: DATA MUST MEET 1 OF 3 CATEGORIES CATEGORY 1: REVIEW OF PRIOR EXTERNAL NOTES, REVIEW OF RESULTS, ORDERING OF EACH TEST, ASSESSMENT REQUIRING INDEPENDENT HISTORIAN OR CATEGORY 2: INDEPENDENT INTERPRETATION OF TESTS BY ANOTHER PHYSICIAN OR SPECIALIST OR CATEGORY 3: DISCUSSION OF MGT OR TEST INTERPRETATION W/EXTERNAL PHYSICIAN OR SPECIALIST ELEMENT 3: RISK RISK OF COMPLICATIONS AND/OR MORBIDITY OR MORTALITY OF PATIENT MANAGEMENT PROVIDER MUST THOROUGHLY DOCUMENT EACH ELEMENT THAT IS COVERED Not available 02/06/2024 11:20:53 06/11/2024 06/11/2024 Patient agreed and verbally consents to this audio and video Telehealth appt via a secure platform [email or web address] Not available 06/11/2024 15:06:08 08/14/2024 08/14/2024 Patient presente d to office [...] HbA1c (hemoglob in A1c), blood 2024 025 [facility], [address] [place] [address], [id number], 08/14/2024 14:37:51 CBC w/ auto diff 2024 025 [facility], [address] [place] [address], [id number], 08/14/2024 14:37:52 CMP, serum or plasma 2024 025 [facility], [address] [place] [address], [address], 08/14/2024 14:37:51 lipid panel, blood 2024 025 [facility], [address] [place] [address], [address], 08/14/2024 14:37:51 CBC 2024 025 [facility], [address] [place] [address], [address], 08/14/2024 14:37:51 vitamin B12, serum 2024 025 [facility], [address] [place] [address], [address], 08/14/2024 14:37:52 TSH, serum or plasma 2024 025 [facility], [address] [place] [address], [address], 08/14/2024 14:37:51 CMP, serum or plasma 2023 024 [facility], [address] [place] [address], [address], 12/27/2023 11:13:20 vitamin D, 25-hydrox y, total, serum 2023 024 [facility], [address] [place] [address], [address], 11/22/2023 14:17:36 Referral None recorded. Procedures None recorded. Surgeries None recorded. Imaging MAMMO, screening , digital, bilateral [address] [facility], [address] [place] [address], [id number], 08/14/2024 14:48:52 bone density [address] [facility], [address] [place] [address], [id number], 08/14/2024 14:48:52 Medication Orders prednison e 10 mg tablet 2024 025 [facility], [address] [place] [address], [id number], 08/14/2024 13:56:24 codeine 10 mg-guaife nesin 100 mg/5 mL oral liquid 2024 025 [facility]85598, [address], [place], [id number], 08/14/2024 13:55:54 amoxicill in 875 mg tablet 2024 025 [facility]18061, [address], [place], [id number], 08/14/2024 13:55:43 gabapenti n 100 mg capsule 2023 024 [facility]15183, [address], [place], [id number], 03/20/2024 14:29:52 cephalexi n 500 mg tablet [id number] [facility] [facility]52218, [address], [place], [id number], 08/14/2024 13:55:39 pregabali n 75 mg capsule 2023 024 [facility] #[id number], [address], [place], [phone], 03/13/2024 21:19:37 Patient TargetsNo targets recorded. Patient Instructions Encounter Date Encounter Id Patient Instructions Last Modified By Organization Details Last Modified Time 11/22/2023 [id number] hypercalcemia: care instructions Not available 11/22/2023 14:07:54 learning about type 2 diabetes Not available 11/22/2023 14:07:54 type 2 diabetes: care instructions Not available 11/22/2023 14:07:55 high blood pressure: care instructions Not available 11/22/2023 14:07:55 learning about high blood pressure Not available 11/22/2023 14:07:54 atrial fibrillation: care instructions Not available 11/22/2023 14:07:54 08/14/2024 [id number] learning about type 2 diabetes Not available [...] 08/14/2024 14:31:22 Reason for Referral None Reported. Results Created Date Observation Date Name Description Value Unit Range Abnormal Flag Note LastModifiedBy Organization Detail LastModifiedTime 11/21/19 24 11/16/2023 MAMMO , scree mohamud, digit al, bilat eral No observ ation record ed. [address], [place], [address], 11/21/2023 09:48:54 Result Notes None recorded. Problems Name Problem SNOMED Code Status Onset Date Resolution Date Notes Provider Name and Address Organization Details Recorded Time Osteoart hritis of knee 724811823 Active 2017 Not Available [facility] 0 02:44:19 [facility] hyperten jina 87137813 Active 2017 Not Available [facility] 0 02:44:19 Impaired fasting glycemia 852167790 Active 2017 Not Available [facility] 0 02:44:19 Atrial fibrilla tion 48375709 Active 2017 coumadin managed Not Available [facility] 0 02:44:19 Helicoba cter pylori gastroin testinal tract infectio n 619950572 Active 2017 Not Available [facility] 0 02:44:19 Bradyarr hythmia 013935303 Active 2017 Not Available [facility] 0 02:44:19 Sick sinus syndrome 94209171 Active 2017 Not Available [facility] 0 02:44:19 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 Not Available [facility] 0 02:44:19 Divertic ular disease 680904644 Active 2017 Not Available [facility] 0 02:44:19 History of tobacco use 49836385737 03 Active 2017 1980s Not Available [facility] 0 02:44:19 History of cardiove rsion 79062848984 108 Active 2017 with pacemaker 2016 Not Available [facility] 0 02:44:19 Pulmonar y hyperten jina 27481594 Active 2018 Not Available [facility] 0 02:44:19 Peripros thetic fracture of hip 09213790594 469711 Active 2021 JORY JANG [address] [place], [address], [facility] 2 15:31:41 Idiopath ic peripher al neuropat hy 32653051 Active 2021 Bill Navarro, DO [address] [place] [address], [address], [facility] 2 16:00:05 Secondar y peripher al neuropat hy 298930 Active 2022 Bill Navarro, DO [address] [place], [address], [facility] 3 11:35:16 Asthmati c bronchit is 968981425 Active 2022 Bill Navarro DO [address] [place], [address], [facility] 3 14:55:21 Chronic bronchit is 98011770 Active 2022 Bill Navarro, DO [address] [place] [address], [address], [facility] 3 11:48:43 Vitamin D deficien cy 13526719 Active 2022 Bill Navarro, DO [address] [place] [address], [address], [facility] 3 11:13:55 Orthosta tic hypotens ion 13375608 Active 2022 Bill Navarro, DO [address] [place] [address], [address], [facility] 3 11:15:54 Postural orthosta tic tachycar karla syndrome 901207748 Active 2022 Bill Navarro, DO [address] [place] [address], [address], [facility] 3 11:05:54 Degenera tive joint disease of hand 43240052 Active 2023 Bill Navarro, DO [address] [place] [address], [address], [facility] 4 11:17:50 Type 2 diabetes mellitus 88998535 Active 2023 JORY JANG [address] [place] [address], [address], [facility] 4 11:05:39 Hypercal cemia 67833621 Active 2023 Bill Navarro, DO [address] [place] [address], [address], [facility] 4 20:58:24 Renal insuffic iency 297974963 Active 2023 Bill Navarro DO [address] [place] [address], [address], [facility] 4 12:08:05 Cellulit is of toe of left foot Active 2023 JORY JANG [address] [place] [address], [address], [facility] 4 11:50:11 Neuropat hy due to type 2 diabetes mellitus 32512511237 9106 Active 2023 JORY JANG [address] [place] [address], [address], [facility] 4 11:52:17 Recurren t candidia sis of vagina 263453026 Active 2024 Bill Navarro DO [address] [place] [address], [address], [facility] 5 14:05:29 Acute bacteria l bronchit is 790863316 Active 2024 JORY JANG [address] [place] [address], [address], [facility] 5 15:01:39 Problem Notes None recorded. Procedures Surgical History Date Name Laterality Status Provider Name and Address Organization Details Recorded Time 018 Corticosteroid Injection completed Bill Navarro DO [address] [place] [address], [address], [facility] 02/03/2018 12:01:37 018 Corticosteroid Injection completed Bill Navarro DO [address] [place] [address], [address], [facility] 09/19/2017 14:20:40 Imaging Results Imaging Date Name Status LastModified by Organiz ation Details LastModified Time 11/16/2023 MAMMO, screening, digital, bilateral completed [email or web address] [address], [place], [address], 11/21/2023 09:48:54 Procedure Notes None recorded. Medical Equipment None Reported. Allergies Allergen ID Allergen Name Allergen Category Reaction Reaction Severity Criticality Documentation Date Start Date Code Code System Note Provider Name and Address Organization Details Recorded Time 303 lisinopri l medicatio n Not available Not available Not available 07/12/[address] [facility] 8 10:24:13 304 albuterol medicatio n Not available Not available low 07/12/2017 435 RxNorm hx afib not an aller gy Bill Navarro, DO [address] [place], [address], [facility] 3 22:04:28 305 flecainid e medicatio n Not available Not available Not available 07/12/2017 4441 RxNorm Melany Johnson [facility] 8 10:24:25 4150 Multaq medicatio n edema severe Not available 02/27/2020 86177 9 RxNorm Bill Navarro, DO [address] [place], [address], [facility] 0 12:15:24 4151 diltiazem Not available edema severe Not available 02/27/2020 3443 RxNorm Bill Navarro, DO [address] [place], [address], [facility] 0 12:15:40 8511 pregabali n medicatio n Not available Not available Not available 03/20/2024 01424 2 RxNorm JORY JANG [address] [place], [address], [facility] 4 11:51:36 Medications [...] MOUTH EVERY 12 HOURS FOR 10 DAYS 08/14 completed Not Available Not Available [...] LAYER TO ENTIRE BURN AREA BY TOPICALRO [place] 2 TIMES PER DAY 07/24 completed Not [...] and Address Organization Details Last Updated DateTime 4 163.83 cm 41.2 kg/m2 791292. 54 g 75 /min 91 % 91 % 144 mm[Hg] 80 mm[Hg] Mandi Bourgeois [facility] 4 13:50:09 Date Recorded Body height Body mass index (BMI) Body weight Heart rate Oxygen saturation Oxygen saturation in Arterial blood by Pulse oximetry Systolic blood pressure Diastolic blood pressure Provider Name and Address Organization Details Last Updated DateTime 4 163.83 cm 40.1 kg/m2 124254. 39 g 80 /min 92 % 92 % 138 mm[Hg] 78 mm[Hg] Mnadi Bourgeois [facility] 4 11:04:45 Date Recorded Body height Body mass index (BMI) Body weight Heart rate Oxygen saturation Oxygen saturation in Arterial blood by Pulse oximetry Systolic blood pressure Diastolic blood pressure Provider Name and Address Organization Details Last Updated DateTime 5 163.83 cm 40.1 kg/m2 405893. 39 g 80 /min 93 % 93 % 120 mm[Hg] 68 mm[Hg] Mandi Bourgeois [facility] 5 13:57:34 Social History Question Answer Notes LastModified by GLOGat ion Details LastModified Time Tobacco Smoking Status Former Smoker Not Available [facility] 03/11/2020 03:36:23 What Was The Date Of Your Most Recent Tobacco Screening? 08/14/2024 Information not available 08/14/2024 Do You Or Have You Ever Used Any Other Forms Of Tobacco Or Nicotine? No Information not available 02/06/2024 Sex: Unknown Functional Status None recorded. Mental Status None recorded. Family History Nothing Reported. Medical History No medical history recorded. Gynecological HistoryNo gynecological history recorded. Obstetrics History GPAL:G 0 P 0 0 0 0 Immunizations Vaccine Type Date Status Note Provider Nam e and Address Organization Details Recorded Time Influenza, split virus, quadrivalent, preservative 1 completed Marianna sanches [facility] 08/13/2022 11:22:35 Influenza, split virus, quadrivalent, preservative 2 completed Marianna sanches [facility] 08/13/2022 11:22:35 Influenza, split virus, quadrivalent, preservative 8 completed Marianna Gencarelle null, [facility] 08/13/2022 11:22:35 Influenza, split virus, quadrivalent, preservative 9 completed Marianna Gencarelle null, [facility] 08/13/2022 11:22:35 zoster, unspecified formulation 9 completed Marianna Gencarelle null, [facility] 08/13/2022 11:22:35 Influenza, split virus, quadrivalent, preservative 0 completed Marianna Gencarelle null, [facility] 08/13/2022 11:22:35 zoster recombinant 0 completed Marianna Gencarelle null, [facility] 08/13/2022 11:22:35 Tdap [address] [facility] 02/29/2020 13:38:26 Pneumococcal conjugate PCV 13 6 [facility] 11:22:35 Tdap [address] [facility] 01/04/2018 09:42:45 zoster, unspecified formulation 4 completed [facility] 08/13/2022 11:22:35 pneumococcal polysaccharide PPV23 9 completed Marianna Gencarelle null, [facility] 08/13/2022 11:22:35 COVID-19, mRNA, LNP-S, PF, 100 mcg/0.5mL dose or 50 mcg/0.25mL dose 1 completed Marianna Gencarelle null, [facility] 08/13/2022 11:22:35 COVID-19, mRNA, LNP-S, PF, 100 mcg/0.5mL dose or 50 mcg/0.25mL dose 1 completed Marianna Gencarelle null, [facility] 08/13/2022 11:22:35 Past Encounters Encounter ID Performer Location Encounter Start Date Encounter Closed Date Diagnosis/Indication Diagnosis SNOMED-CT Code Diagnosis ICD10 Code Diagnosis Note [id number] Bill Navarro [facility] [address] [facility], [place] [address] 09/16/2017 09:23:55 09/16/2017 10:54:22 Impaired fasting glycemia 578475172 R73.01 stable and will need a follow up a1c this summer Atrial fibrillation 4943 6004 I48.91 long detailed discussion re tikosyn therapy and the risks that come with this and the fact that shes doing quite well now with digoxin and metoprolol and pradaxa states feels good right now and states is not interested in this new med Essential hypertension 89656003 I10 stable and has decent med regimen [id number] Bill HidalgoFaith Navarro [facility] [address] [facility],[place] [address] 09/19/2017 13:45:42 09/19/2017 14:52:35 Osteoarthritis of knee 880864258 M17.12 madelyn inj [id number] Bill Powers Ganesh [facility] [address] [facility],[place] [address] 01/04/2018 09:25:17 01/04/2018 15:07:00 Essential hypertension 31976918 I10 stable and has decent med regimen Impaired f asting glycemia 199918212 R73.01 stable and will need a follow up a1c this summer will order Hypothyroidism 93845073 E03.9 check tsh Atrial fibrillation 4943 6004 I48.91 feeling very good, no symptoms or issues no palpitatio ns etc Abrasion a nd/or friction burn of skin 840576970 T14.8XXA [id number] Bill HidalgoFaith Navarro [facility] [address] [facility],[place] [address] 02/03/2018 11:15:49 02/03/2018 14:15:27 Osteoarthritis of knee 931264371 M17.12 madelyn inj well leopoldo [id number] Bill Navarro [facility] [address] [facility], [place] [address] 04/24/2018 10:21:54 04/24/2018 10:41:48 Atrial fibrillation 57219446 I48.91 feeling very good, no symptoms or issues no palpitatio ns etc Hypothyroidism 31840426 E03.9 check tsh Essential hypertension 14402048 I10 stable and has decent med regimen Impaired f asting glycemia 501723496 R73.01 stable and will need a follow up a1c this summer will order Hepatitis C screening 41 0639750 Z11.59 Osteopenia 645539241 M85 .9 Sick sinus syndrome 3608 3008 I49.5 stable and asymptomat ic Osteoarthr itis of knee 055181300 M17.12 madelyn inj well leopoldo but pain has returned bad will refer to orthopedis t Cough 08486948 R05 Knee pain 00672845 M25.5 69 [id number] Bill Navarro [facility] [address] [facility],[place] [address] 07/24/2018 10:18:46 07/24/2018 10:56:48 Osteoarthritis of knee 036550454 M17.12 madelyn inj well leopoldo in past but pain has returned bad she is scheduled for surgery in September no cortisone inj any more Atrial fibrillation 4943 6004 I48.91 feeling very good, no symptoms or issues no palpitatio ns etc Essential hypertension 43987732 I10 stable and has decent med regimen Impaired f asting glycemia 745241149 R73.01 stable and will need a follow up a1c this summer will order Hypothyroidism 08267295 E03.9 check tsh [id number] Bill Navarro [facility] [address] [facility],[place] [address] 11/22/2018 09:42:32 11/22/2018 13:43:04 Impaired fasting glycemia 634261745 R73.01 -followup hbgA1c in 6 months -continue dietary regulation -continue weight reduction Hypothyroidism 41133607 E03.9 -continue levothyrox ine Atrial fibrillation 4943 6004 I48.91 feeling very good, no symptoms or issues no palpitatio ns etc Essential hypertension 57238525 I10 stable and has decent med regimen Pulmonary hypertension 18335579 I27.20 will be seeing cardiol in jan and will prob have her metoprol chng to diltiaz [id number] Bill Navarro [facility] [address] [place] [address] 04/11/2019 09:52:27 04/11/2019 10:51:05 Impaired fasting glycemia 849072859 R73.01 -followup hbg A1c in 6 months A1C 6.3 well controlled with diet and exercise Hypothyroidism 13786129 E03.9 -continue levothyrox ine Atrial fibrillation 4943 6004 I48.91 feeling very good, no symptoms or issues no palpitatio ns etc Essential hypertension 10770869 I10 stable and has decent med regimen [id number] Bill Navarro [facility] [address] [place] [address] 08/15/2019 09:43:08 08/15/2019 10:18:17 Hypothyroidism 22113983 E03.9 -continue levothyrox ine Atrial fibrillation 4943 6004 I48.91 feeling very good, no symptoms or issues no palpitatio ns etc Essential hypertension 29073108 I10 stable and has decent med regimen Impaired f asting glycemia 634475825 R73.01 -followup hgb A1c in 6 months needed now A1C 6.3 well controlled with diet and exercise last may Sick sinus syndrome 3608 3008 I49.5 stable and asymptomat ic Degenerati ve joint disease of hand 33052890 M19.049 [id number] Bill Navarro [facility] [address] [place] [address] 02/27/2020 11:28:16 02/27/2020 12:40:34 Essential hypertension 01305141 I10 stable and has decent med regimen Atrial fibrillation 4943 6004 I48.91 now had av maryellen; ablation now with pacemaker and tikosyn per cardiol and has been stable Hypothyroidism 70559576 E03.9 -continue levothyrox ine Impaired f asting glycemia 225906034 R73.01 -followup hgb A1c in 6 months needed now A1C 6.3 well controlled with diet and exercise last may Bill Navarro [facility] [address] [place] [address] 09/02/2020 14:11:08 09/02/2020 15:24:55 Hypothyroidism 40166065 E03.9 -continue levothyrox ine and is going to need a follow up lab Atrial fibrillation 4943 6004 I48.91 now had av maryellen; ablation now with pacemaker and tikosyn per cardiol and has been stable Essential hypertension 59540818 I10 stable and has decent med regimen Dyspnea 081230035 R06.00 [id number] Bill Navarro, [facility] [address] [facility],[place] [address] 01/16/2021 09:42:12 01/16/2021 10:41:19 Atrial fibrillation 59198030 I48.91 now had av maryellen; ablation now with pacemaker and tikosyn (dofetilid e) per cardiol and has been stable Pulmonary hypertension 98392390 I27.20 will be seeing cardiol in jan and will prob have her metoprol to 75 bidand has a pacer check in a few weeksseen by Dr jhaveri for the pacemaker and all was ok Essential hypertension 95303558 I10 stable and has decent med regimen Bradyarrhythmia 80119919 4 I49.8 stable pacer working well Impaired f asting glycemia 904703831 R73.01 -followup hgb A1c in 6 months needed now A1C 6.3 well controlled with diet and exercise last may Osteoarthr itis of knee 069136009 M17.12 still struggling but not quite yet adn will call dr spears when time [id number] Bill Navarro, [facility] [address] [facility],[place] [address] 07/17/2021 09:47:43 07/20/2021 15:22:37 Hypothyroidism 68544698 E03.9 -continue levothyrox ine and is going to need a follow up lab Atrial fibrillation 4943 6004 I48.91 now had av maryellen; ablation now with pacemaker and tikosyn (dofetilid e) per cardiol and has been stableas not3ed we will ask cardio re stopping the tikosyn as discussed she stacy ask but will not stop the tikosyn until told to do sotikosyn is per pt bothering her some Essential hypertension 34158298 I10 stable and has decent med regimen Impaired f asting glycemia 976135050 R73.01 -followup hgb A1c now and in 6 months needed A1C 6.3 well controlled with diet and exercise last may Pulmonary hypertension 46651897 I27.20 will be seeing cardiol in jan and will prob have her metoprol to 75 bidand has a pacer check in a few weeksseen by Dr jhaveri for the pacemaker and all was ok [id number] [facility] [address] [facility], [place] [facility] [place] [address] 12/09/2021 13:43:28 12/09/2021 15:51:16 Periprosthetic fracture of hip [id number] M97.02XA fu with ortho [id number] Bill Navarro [facility] [address] [facility], ite [facility] [place] [address] 12/21/2021 14:09:23 12/21/2021 16:23:50 Essential hypertension 22057252 I10 stable and has decent med regimen Atrial fibrillation 4943 6004 I48.91 now had av maryellen; ablation now with pacemaker and tikosyn (dofetilid e) per cardiol and has been stableas not3ed we will ask cardio re stopping the tikosyn as discussed she stacy ask but will not stop the tikosyn until told to do sotikosyn is per pt bothering her some Impaired f asting glycemia 438454650 R73.01 -followup hgb A1c now and in 6 months needed A1C 6.3 well controlled with diet and exercise last may Hypothyroidism 94474144 E03.9 -continue levothyrox ine and is going to need a follow up lab [id number] Bill Navarro [facility] [address] [facility] [address] [place], [place] [address] 03/16/2022 15:10:52 03/16/2022 16:10:28 Hypothyroidism 69373899 E03.9 -continue levothyrox ine and is going to need a follow up lab Impaired f asting glycemia 417017970 R73.01 -followup hgb A1c now and in 6 months needed A1C 6.3 well controlled with diet and exercise last may Atrial fibrillation 4943 6004 I48.91 as note d she was really dong well and despite the severe truama of the femur fracture PRIOR: now had av maryellen; ablation now with pacemaker and tikosyn (dofetilid e) per cardiol and has been stable asas not3ed we will ask cardio re stopping the tikosyn as discussed she stacy ask but will not stop the tikosyn until told to do sotikosyn is per pt bothering her some Essential hypertension 23095853 I10 stable and has decent med regimen Active or passive immunization 892059068 Z23 patient advised she is due for flu shot Advance care planning 71 2782573 Z71.89 done Idiopathic peripheral neuropathy 04104856 G60.9 we will have her try the cannabis at bedtime [id number] DO [facility] [address] [facility] [address],[place] [address] 05/17/2022 10:47:19 05/17/2022 14:04:36 Impaired fasting glycemia 118357231 R73.01 -followup hgb A1c now and in 6 months needed A1C 6.3 well controlled with diet and exercise last may Hypothyroidism 11897086 E03.9 -continue levothyrox ine and is going to need a follow up lab Atrial fibrillation 4943 6004 I48.91 as note d she was really dong well and despite [...] not want to stop this Essential hypertension 11610009 I10 stable and has decent med regimen Pulmonary hypertension 21800983 I27.20 will be seeing cardiol in jan and will prob have her metoprol to 75 bidand has a pacer check in a few weeksseen by Dr jhaveri for the pacemaker and all was ok Secondary peripheral neuropathy 550744 G63 will try increasing the gabapentin to tid from bid [id number] Bill Navarro, [facility] [address] [facility],[place] [address] 08/13/2022 11:21:25 08/13/2022 12:02:04 Essential hypertension 60916493 I10 stable and has decent med regimen Atrial fibrillation 4943 6004 I48.91 as note d she was really dong well and despite [...] cardiology did not want to stop this Chronic bronchitis 76486 004 J42 we will cont the breo for now and see how she does this summer [id number] Bill Navarro, [facility] [address] [facility] [place] [address] 12/29/2022 10:48:52 12/29/2022 11:25:04 Bradyarrhythmia 195274321 I49.8 stable pacer working well Hypothyroidism 94036064 E03.9 -continue levothyrox ine and is going to need a follow up lab Impaired f asting glycemia 463386860 R73.01 -followup hgb A1c now and in 6 months needed A1C 6.3 well controlled with diet and exercise last may Pulmonary hypertension 40658588 I27.20 will be seeing cardiol in jan and will prob have her metoprol to 75 bidfidel has a pacer check in a few weeksseen by Dr jhaveri for the pacemaker and all was ok Atrial fibrillation 4943 6004 I48.91 as note d she was really dong well and despite [...] not want to stop this Essential hypertension 44816268 I10 stable and has decent med regimen Adult heal th examination 732984292 Z00.00 Chronic bronchitis 60716 004 J42 breo is not helping toomuch we will try her on samples of trelegy 100mgchk spirometry here Vitamin D deficiency 347 68858 E55.9 given hx we will rechk Orthostati c hypotension 49835212 I95.1 will push the fluids a bit more as she has noticed some dizziness when getting up quickly [id number] Bill Navarro, [facility] [address],[place] [address] 05/04/2023 09:05:52 05/04/2023 11:25:50 Atrial fibrillation 81474094 I48.91 as note d she was really dong well and despite [...] not want to stop this Essential hypertension 57052254 I10 stable and has decent med regimen Hypothyroidism 54272090 E03.9 -continue levothyrox ine and is going to need a follow up lab Vitamin D deficiency 347 93811 E55.9 given hx we will rechk Impaired f asting glycemia 523379306 R73.01 -followup hgb A1c now 6.2 in february A1C 6.3 well controlled with diet and exercise last may Orthostati c hypotension 11283515 I95.1 will push the fluids a bit more as she has noticed some dizziness when getting up quickly so we will cut the furosemide in half and see how she does with the 20mg total dose [id number] Bill Navarro DO [facility] [address] [facility],[place] [address] 08/03/2023 10:49:05 08/03/2023 11:35:28 Hypothyroidism 27828235 E03.9 -continue levothyrox ine and is going to need a follow up lab Pulmonary hypertension 48500581 I27.20 will be seeing cardiol in summer and will prob have her metoprol to 75 bidand has a pacer check in a few weeksseen by Dr jhaveri for the pacemaker and all was ok done over the phone had 2 episodes of afib Atrial fibrillation 4943 6004 I48.91 last visit: as note d she was really dong well and despite [...] cardiology did not want to stop this 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,[place] [address] 09/13/2023 09:21:00 09/14/2023 09:32:21 Depression screening 984248527 Z13.31 stable Pre-surger y evaluation 462865464 Z01.818 The patient was seen in the office today for pre-op evaluation . All medical conditions on patient's problem list were addressed and are currently stable, no interventi on needed at this time. Based on history and physical performed, the patient is cleared for surgery. Atrial fibrillation 4943 6004 I48.0 stable Essential hypertension 27813135 I10 BP is excellent [id number] Bill Navarro [facility] [address] [facility],[place] [address] 11/22/2023 13:41:36 11/22/2023 15:10:09 Atrial fibrillation 98744525 I48.0 currently has been sporadic episodes at [...] not want to stop this Essential hypertension 84535709 I10 stable and has decent med regimen History of cardioversion 3398960025 9108 Z92.89 stable Hypercalcemia 96450038 E 83.52 prob self induced has stopped the Ca+ and vit D will have her rechk the level in few weeks Type 2 karla betes mellitus 99263397 E11.9 a1c is pending Renal insufficiency 7231 12898 N28.9 has been stable [id number] Bill Navarro [facility] [address] [facility],[place] [address] 02/06/2024 10:47:18 02/06/2024 11:28:55 Atrial fibrillation 40161729 I48.0 currently has been sporadic episodes at [...] cardiology did not want to stop this Hypothyroidism 61643664 E03.9 -continue levothyrox ine and is going to need a follow up lab Pulmonary hypertension 31355412 I27.20 will be seeing cardiol in summer and will prob have her metoprol to 75 bidand has a pacer check in a few weeksseen by Dr jhaveri for the pacemaker and all was ok done over the phone had 2 episodes of afib Type 2 karla betes mellitus 43992965 E11.9 a1c is still pending Renal insufficiency 7231 70174 N28.9 has been stable Secondary peripheral neuropathy 913590 G63 gabapentin not working will try lyrica [id number] [facility] [address] [facility],[place] [address] 03/20/2024 11:20:44 03/20/2024 12:05:09 Cellulitis of toe of left foot 2437235171 L03.032 will set up with enough medication to last for the week she is on vacation 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 will restart on gabapentin [id number] J[facility] JANG [facility] [address] [facility],[place] [address] 06/11/2024 09:44:19 06/11/2024 16:14:49 Acute bacterial bronchitis 619039033 J20.8 start on treatment [id number] Bill Navarro DO [facility] [address] [facility],[place] [address] 08/14/2024 13:42:15 08/14/2024 14:48:52 Adult health examination 167456263 Z00.00 doing ok ecxcept for her foot still an issue doesnt want surgery wishes to cont Screening for cardiovascular system disease 274915946 Z13.6 Screening for osteoporosis 315698472 Z13.820 Screening mammography 24 052566 Z12.31 Atrial fibrillation 4943 6004 I48.0 currently [...] not want to stop this Essential hypertension 37234000 I10 stable and has decent med regimen Hypothyroidism 41931359 E03.9 -continue levothyrox ine and is going to need a follow up lab Neuropathy due to type 2 diabetes mellitus 9221639125 55191 E11.42 unfortunat [place] not having any luck with the meds Type 2 karla betes mellitus 55167566 E11.9 a1c is still pending Health Concerns Section Related Observation LastModified by Organization Detai ls LastModified Time None Recorded Concern Status LastModified by Organization Details LastModified Time None Recorded Advance Directives Directive None Recorded Payers Encounter Date Sequence Insurance Name Policy Number Policy Bravo Covered Member ID Bravo Member ID Guarantor Name 11/22/2023 2 [facility] [id number] Sravani Elmo [id number] Sravani Borrego 11/22/2023 1 [place] [employer] Sravani Borrego [id number] Sravani Borrego 02/06/2024 2 [facility] [id number] Sravani Borrego [id number] Sravani Borrego 02/06/2024 1 [place] [employer] Sravani Borrego [id number] Sravani Borrego 03/20/2024 2 [facility] [id number] Sravani Borrego [id number] Sravani Borrego 03/20/2024 1 [place] [facility] Sravani Borrego [id number] Sravani Borrego 06/11/2024 2 [facility] [id number] Sravani Borrego [id number] Sravani Borrgeo 06/11/2024 1 [place] [facility] Sravani Borrego [id number] Sravani Borrego 08/14/2024 1 [place] [facility] Sravani Borrego [id number] Sravani Borrego 08/14/2024 2 [facility] [id number] Sravani Borrego [id number] Sravani Borrego Notes Date Note Type Note Provider Name and Address Organization Details Recorded Time 4 text/htm l Care Management - DiabetesReported bypatient.Self Care:seeing eye doctor yearly for dilated eye exam; checking feet regularly; normal range of home blood sugars (in the low 100s); no side effects from medications Associated Symptoms:symptoms are usually well controlled; no fatigue; no dizziness; no excessive sweating; no headaches; no confusion; no increased thirst; no increased appetite; no increased urination; no blurred vision; no numbness of feet; no calluses on feetCare Management - HypertensionReported bypatient.Self Care:not under emotional stress Severity:symptoms are improving; does not interfere with daily activities Associated Symptoms:no dizziness; no lightheadedness; no chest pain; no shortness of breath; no palpitations; no edema; no calf muscle cramps; no blurred vision; no confusion; no headaches; no fatigueNotes:reviewed lab in detailhas only minor elevation of ca+ and noted renal insuff (stable) we will have her rechk the Ca+ level in a couple weeks because this is most likely her supp, renal insuff, and meds that made her 10.4 instead of less than 10.22 also pth level is normal seen by cardiol held furosemide for several days and had aldact cut down to 25mg as her calcium was high and was told to stop the vit d and calcium supp which she admits was taking a lotalso her bps have been good see home readingshas been having episodes of short runs of afib Bill Navarro, DO [address] [place], [address], [facility] 11/22/2023 14:10:42 4 text/htm l here for rechk and is doing ok[place] no sob denies any major issues except her neuropathy Bill Navarro, DO [address] [place], [address], [facility] 02/06/2024 11:27:16 4 text/htm l c/o infection of the toe cellulitis of toe left: started after a blister that popped on the medial side of her left big toehx of diabetes and neuropathyhas been keeping the area clean and dressedhas purulent d/c, redness, warmth and pain around the arearecommended starting abx and cont with dressing she is doing pregabalin caused issues and side effectswill go back on gabapentin JORY JANG [address] [place] [address], [phone], [facility] 03/20/2024 12:03:05 5 text/htm l c/o sick The patient is participating in this appointment via telemedicine communication with a phone call/video calling service (Pix[employer])The patient consents to use of these platforms in place of an in-person appointment due to either sick symptoms the patient is presenting with or current office closure due to COVID exposure in order to keep our office staff and patients safe The patient presents to the office today with concerns of sick symptoms including bronchitis, cough, laryngitis, green thick mucus production, fatigue, chest pressure, sore throat, sob The symptoms started originally a week or so agoThe patient reports exposure to a cruise she went onThe patient symptoms mainly involves the cough, laryngitis, sob Pertinent comorbidities include age The patient symptoms are alleviated by restThe patient symptoms are exacerbated by movement, talking The patient has tested for COVID-19 and the results was negative x 1 JORY JANG [address] [place] [address], [phone], [facility] 06/11/2024 15:09:30 5 text/htm l Medicare Annual Wellness VisitReported bypatient.Diet and Nutrition:healthy [...] with good response Bill Navarro, DO [address] [facility], [place], [address], [facility] 08/14/2024 14:35:08 OBGyn Episode No OBEpisode recorded.
--- OUTSIDE RECORDS SUMMARY | 2024-08-14 17:46 | XMS_ITS | Data Portability ---
Author Organization [place] [facility] Address [facility] [place] [address] Care Team Providers Care Remote Encoding Center Manager Name Role Phone YANG NAVARRO Primary Care Provider [phone] CHRISS BAPTISTE Orthopedic Surgeon Assessment Encounter Date Assessment Date Assessment LastModified by Organization Details LastModified Time 10/05/2021 10/05/2021 Overview/History : 71 yo F with a PMH of afib, HTN, hypothyroidism, HAYLEE, hx pulmomary hypertension had a same day total R knee replacement 3 days ago. She has noted saturation of the dressing of blood and serosanguinous fluid since discharge. Exam: General Appearance: in no acute distress, chronically ill appearing, deconditioned with elevated BMI Sitting on couch with oxygen on appears comfortable. Mental Status: active and alert, follows commands appropriately Head: normocephalic, atraumatic Pulmonary: normal effort, no respiratory distress, no tachypnea, no accessory muscle use, On oxygen at time of assessment, typically used naps and night time sleep Cardiovascular: RRR no murmur, no rubs, no gallops, Pulses: posterior tibialis right 2+, dorsalis pedis right 2+ Musculoskeletal: Normal ROM except R knee. Knee (Focused): no obvious deformity , FROM , decreased ROM R, decreased strength R, tenderness to palpation soft tissue R Psychologic: normal mood, normal affect, normal insight, normal cognition, normal recent memory, normal remote memory Skin: no rash, Ecchymosis to the right knee region and down right lower leg. Dressing is intact covering the surgical incision of the right knee. There is blood saturation to the absorbent center of the dressing with small amount to fluid to the bottom of the dressing. It does not appear to be actively bleeding. Cryocuff in place. Vital Signs: T 98.1 HR 72 BP 124/76 RR 18 SpO2 91 % 3L DDx considered, but not limited to: postop bleeding, post op infection This patient presents 3 days post total R TKR and she is concerned about the amount of bleeding that is saturating her dressing. There does not appear to be active bleeding at the time of assessment. She is on Plavix. She is otherwise experiencing no complications. As expected she does have some pain with ambulation but controlled with current medication regimen. Reached out to [facility] and spoke with pullman conductor provider Dick Cueva PA and discussed findings and discuss if dressing should remain intact or changed. The decision was made to keep current dressing intact and have the patient contact the office to have the dressing changed in the office tomorrow. Work up/Results: None Plan/Discussion: Reduce activity, elevated R knee, keep cryocuff on as ordered. Contact [facility] in the morning to schedule a dressing change. The patient is advised to make an appt with PCP in 3-5 days to discuss ongoing symptoms/ further management. The patient is also advised to go to the ED immediately for any worsening symptoms. The patient understood and agreed with this plan. The patient was given discharge instructions and all questions were answered prior to DH team departure. Proper Personal Protective Equipment (PPE), including gloves, eye protection and masks were donned and doffed appropriately and all equipment cleaned using approved technique with germicidal disposable wipes prior to and after care of this patient according to [facility]'s infection prevention protocols. [email or web address] Not available 10/05/2021 13:19:36 Plan of Treatment Reminders Order Date Submit Date Provider Last Modified By Organization Details Last Modified Time Details Appointments None record ed. Lab None record ed. Referral None record ed. Procedures None record ed. Surgeries None record ed. Imaging None record ed. Medication Orders None record ed. Patient TargetsNo targets recorded. Patient InstructionsNo instructions recorded. Reason for Referral None Reported. Procedures Surgical History Date Name Laterality Status Provider Name and Address Organization Details Recorded Time Total knee arthroplasty completed Chantell Rogers NP [address] [place], [address], [place] [facility] 10/05/2021 09:09:02 Carpal tunnel surgery completed Chantell Rogers NP [address], [place], [address], [place] [facility] 10/05/2021 09:09:18 tarsal tunnel release completed Chantell Rogers, [employer]AX ANALYST [address], [place], [address], [place] [facility] 10/05/2021 09:09:31 Cholecystectomy completed Chantell edwards, INCOME TAX ANALYST [address], [place], [address], [place] [facility] 10/05/2021 09:09:40 Total Hysterectomy completed Chantell adhikari, INCOME TAX ANALYST [address], [place], [address], [place] [facility] 10/05/2021 09:09:48 cardiac ablation using fluoroscopy guidance completed Chantell RogersRUBÉN [address], [place], [address], [place] [facility] 10/05/2021 09:10:49 Imaging Results None recorded. Procedure Notes None recorded. Medical Equipment Implant LUIS FERNANDO Issuing Agency Serial Number Lot Number Status Provider Name and Address Organization Details Recorded Time Cardiac pacemaker FDA Y Chantell RogersRUBÉN [address] [place] [place], [address] , [place] [facility] 10/05/2021 09:10:26 Allergies Allergen ID Allergen Name Allergen Category Reaction Reaction Severity Criticality Documentation Date Start Date Code Code System Note Provider Name and Address Organization Details Recorded Time [id number] lisinopri l medicatio n Not available Not available Not available 10/05/2021 06961 RxNorm Chantell RogersRUBÉN [address] [place], [address], [place] [facility] 09:01:15 [id number] albuterol medicatio n Not available Not available Not available 10/05/2021 435 RxNorm Chantell RogersRUBÉN [address] [place], [address], [place] [facility] 2 09:01:23 331176 flecainid e medicatio n Not available Not available Not available 10/05/2021 4441 RxNorm Chantell RogersRUBÉN [address] [place], [address], [place] [facility] 09:01:33 Medications Name Sig Start Date Stop Date Status Note LastModified by Organization Details LastModified Time furosemide 40 mg tablet active Not Available Not Available Not Available Tikosyn 250 mcg capsule Take 1 capsule twice a day by oral route. active Not Available Not Available No t Available tramadol 50 mg tablet TAKE 1 TO 2 TABLETS BY MOUTH EVERY 6 HOURS NEEDED FOR MILD PAIN. DO NOT EXCEED 8 TABLETS (400MG) PER DAY. active Not Available Not Available No t Available Aldactone 50 mg tablet Take 1 tablet every day by oral route. active Not Available Not Available No t Available hydromorpho ne 2 mg tablet TAKE 1 TO 2 TABLETS BY MOUTH EVERY 4 HOURS NEEDED FOR MODERATE TO SEVERE PAIN active Not Available Not Available No t Available levothyroxi ne 50 mcg tablet TAKE 1 TABLET BY MOUTH EVERY DAY active Not Available Not Available No t Available gabapentin 300 mg capsule TAKE 1 CAPSULE BY MOUTH TWICE DAILY active Not Available Not Available No t Available zinc 50 mg tablet Take by oral route. active Not Available Not Available No t Available melatonin active Not Available Not Deb ilable Not Available acetaminoph en active Not Available Not Available Not Available Vitamin C active Not Available Not Deb ilable Not Available calcium active Not Available Not Avail able Not Available multivitami n active Not Available Not Available Not Available Pradaxa 150 mg capsule TAKE 1 CAPSULE BY MOUTH TWICE DAILY 10/05 completed Not Available Not Available Not Available Pradaxa 75 mg capsule TAKE 1 CAPSULE BY MOUTH TWO TIMES A DAY FOR 7 DAYS THEN INCREASE TO HOME DOSE OF 150 MG TWO TIMES A DAY active Not Available Not Available No t Available magnesium 400 mg (as magnesium oxide) capsule Take by oral route. active Not Available Not Available No t Available metoprolol tartrate 75 mg tablet active Not Available Not Available No t Available Vitals Date Recorded Respiratory rate Heart rate Oxygen saturation Oxygen saturation in Arterial blood by Pulse oximetry Inhaled oxygen flow rate Body temperature Systolic blood pressure Diastolic blood pressure Provider Name and Address Organization Details Last Updated DateTime 2 18 /min 72 /min 91 % 91 % 3 L/min 98.1 [degF] 124 mm[Hg] 76 mm[Hg] Not Available [facility] 2 09:07:34 Social History Question Answer Notes LastModified by Organizat ion Details LastModified Time Tobacco Smoking Status Former Smoker Chantell Rogers NP [address], [place], [address], [place] [facility] 10/05/2021 09:08:35 What Is Your Level Of Alcohol Consumption? None Information not available 10/05/2021 Excessive Alcohol Or Drug Use No Information not available 10/05/2021 Does This Patient Have A PCP? Yes Information not available 10/05/2021 Has The Patient Seen Their PCP In The Past 6 Months? Yes Information not available 10/05/2021 Is This Patient In Hospice? No Information not available 10/05/2021 Do You Use Any Illicit Or Recreational Drugs? No Information not available 10/05/2021 How Many Years Have You Smoked Tobacco? 9 Information not available 10/05/2021 Do You Or Have You Ever Used Any Other Forms Of Tobacco Or Nicotine? No Information not available 10/05/2021 Sex: Unknown Functional Status None recorded. Mental Status None recorded. Family History Relationship Description Onset Age of this Age Resolved Age Notes LastModified by Organization Details LastModified Time Brother Diabetes mellitus [email or web address] Not available 2021 09:07:25 Father Sarcoma lnovia Not available 09:07:42 Mother Pulmonary emphysema lnovia Not available 2021 09:08:09 Medical History Condition Response Hypothyroidism Y A-fib Y Hypertension Y Gynecological HistoryNo gynecological history recorded. Obstetrics History GPAL:G 0 P 0 0 0 0 Past Encounters Encounter ID Performer Location Encounter Start Date Encounter Closed Date Diagnosis/Indication Diagnosis SNOMED-CT Code Diagnosis ICD10 Code Diagnosis Note [id number] Chantell Rogers NP [facility] [address] [place] [address] 10/05/2021 08:59:03 10/08/2021 09:47:59 Surgical incision wound of skin 6804007230 00 R23.8 History of right total knee replacement 0049442225 080057 Z96.651 Long-term current use of anticoagulant 798730209 Z79.01 Health Concerns Section Related Observation LastModified by Organization Detai ls LastModified Time None Recorded Concern Status LastModified by Organization Details LastModified Time None Recorded Advance Directives Directive None Recorded Payers Encounter Date Sequence Insurance Name Policy Number Policy Bravo Covered Member ID Bravo Member ID Guarantor Name 10/05/2021 1 MEDICARE [place]: [facility] Sravani Borrego [id number] Sravani Borrego 10/05/2021 2 [facility] [employer] - [place] (INDEMNITY) [id number] Sravani Borrego [id number] Sravani Borrego Notes Date Note Type Note Provider Name and Address Organization Details Recorded Time 10/05/2021 text/html 71 yo F with a P MH of afib, HTN, hypothyroidism, HAYLEE, hx pulmomary hypertension had a same day total R knee replacement 3 days ago. She has noted saturation of the dressing of blood and serosanguinous fluid since discharge. BRANDIE Rogers, RUBÉN [address] [place], [address], [place] [facility] 10/05/2021 13:25:47 OBGyn Episode No OBEpisode recorded.
[2024-08-14 18:37] LABS: MANUAL DIFF FLAG NO
[2024-08-14 18:42] LABS: Basophils Absolute Auto 0.1 X10*3/uL (0.0-0.2); Basophils Percent Auto 0.7 % (0-2); Eosinophils Absolute Auto 0.3 X10*3/uL (0.0-0.4); Hematocrit 40.4 % (37.0-47.0); Hemoglobin 13.1 g/dl (12.0-16.0); Imm Gran Abs Auto 0.02 X10*3/uL (0.00-0.03); Imm Gran Pct Auto 0.2 % (0.0-0.4); Lymphocytes Absolute Auto 1.4 X10*3/uL (1.2-4.9); Lymphocytes Percent Auto 16.1 % (20-40); Mean Corpuscular HGB Conc 32.4 g/dl (31.0-35.0); Mean Corpuscular Volume 92.7 fL (80.0-98.0); Mean Platelet Volume 11.2 fL (9.4-12.3); Monocytes Percent Auto 11.7 % (2-11); Neutrophils Absolute Auto 5.7 x10*3/uL (2.0-8.3); Neutrophils Percent Auto 67.3 % (45-73); Platelet Count 213 X10*3/uL (160-400); Red Blood Count 4.36 X10*6/uL (4.20-5.50); Red Cell Distribution Width 16.6 % (11.0-16.0); White Blood Count 8.4 X10*3/uL (4.8-10.8)
[2024-08-14 18:56] LABS: Estimated Average Glucose 126 mg/dL; Hemoglobin A1C 147.0786 umol/L
[2024-08-14 19:06] LABS: Alanine Aminotransferase 14 U/L (0-31); Albumin Level 3.9 g/dL (3.5-5.0); Alkaline Phosphatase 89 U/L (39-117); Anion Gap 12 (12-20); Aspartate Amino Transferase 30 U/L (5-31); Bilirubin Total 0.6 mg/dL (0.0-1.0); Blood Urea Nitrogen 28 mg/dL (9-16); Calcium 10.3 mg/dL (8.4-10.2); Carbon Dioxide 30 mmol/L (22-29); Chloride 102 mmol/L (96-108); Cholesterol 157 mg/dL (<200); Estimated Glomerular Filt Rate 47; Glucose Random 87 mg/dL (60-115); HDL Cholesterol 42 mg/dL (>40); LDL Cholesterol Calculated 89 mg/dL (<100); Sodium 139 mmol/L (135-145); Total Protein 7.1 g/dL (6.5-8.0); Triglycerides 134 mg/dL (<150)
[2024-08-14 19:22] LABS: Thyroid Stimulating Hormone 0.57 uIU/mL (0.32-4.0)
[2024-08-14 19:26] LABS: Vitamin B12 813 pg/mL (200-900)
== END 2024-08-14 14:37 | disposition home or self-care (01) ==
LOC: HO.MANLDS 14:36
PROVIDERS: Visit Provider Internal Medicine
DX: Z00.00 Encounter for general adult medical examination without abnormal findings (principal); Z13.6 Encounter for screening for cardiovascular disorders; I10 Essential (primary) hypertension; E03.9 Hypothyroidism, unspecified; E11.42 Type 2 diabetes mellitus with diabetic polyneuropathy
CPT/HCPCS: 36415; 80053; 80061; 82607; 83036; 84443; 85025

== ENCOUNTER 2024-12-24 11:18 | Outpatient (REF) | payer MEDICARE, OTHER, SELFPAY ==
[2024-12-24 13:05] LABS: MANUAL DIFF FLAG NO
[2024-12-24 13:07] LABS: Hematocrit 42.2 % (37.0-47.0); Hemoglobin 13.9 g/dl (12.0-16.0); Imm Gran Abs Auto 0.03 X10*3/uL (0.00-0.03); Imm Gran Pct Auto 0.3 % (0.0-0.4); Lymphocytes Absolute Auto 1.2 X10*3/uL (1.2-4.9); Mean Corpuscular HGB Conc 32.9 g/dl (31.0-35.0); Mean Corpuscular Hemoglobin 31.2 pg (27.0-33.0); Mean Corpuscular Volume 94.8 fL (80.0-98.0); NRBC Abs Auto 0.000 X10*3/uL (0.0-0.012); NRBC Pct Auto 0.0 /100WBC (0.0-0.2); Platelet Count 259 X10*3/uL (160-400); Red Blood Count 4.45 X10*6/uL (4.20-5.50); White Blood Count 8.7 X10*3/uL (4.8-10.8)
[2024-12-24 13:39] LABS: Alanine Aminotransferase 16 U/L (0-31); Albumin Level 4.1 g/dL (3.5-5.0); Alkaline Phosphatase 76 U/L (39-117); Anion Gap 13 (12-20); Aspartate Amino Transferase 54 U/L (5-31); Blood Urea Nitrogen 33 mg/dL (9-16); Calcium 10.1 mg/dL (8.4-10.2); Carbon Dioxide 31 mmol/L (22-29); Chloride 102 mmol/L (96-108); Estimated Glomerular Filt Rate 43; Potassium 5.0 mmol/L (3.3-5.1); Sodium 141 mmol/L (135-145); Total Protein 7.3 g/dL (6.5-8.0)
[2024-12-24 13:45] LABS: Hemoglobin A1C 161.2702 umol/L; Total Hemoglobin (HGBA1C) 3623.5217 umol/L
== END 2024-12-24 11:19 | disposition home or self-care (01) ==
LOC: HO.MANLDS 11:18
PROVIDERS: Visit Provider Internal Medicine
DX: I10 Essential (primary) hypertension (principal); E11.9 Type 2 diabetes mellitus without complications
CPT/HCPCS: 36415; 80053; 82306; 83036; 85025

== ENCOUNTER 2025-04-08 10:39 | Outpatient (REF) | payer MEDICARE, OTHER, SELFPAY ==
[2025-04-08 13:37] LABS: MANUAL DIFF FLAG NO
[2025-04-08 13:48] LABS: Hematocrit 43.1 % (37.0-47.0); Hemoglobin 13.8 g/dl (12.0-16.0); Imm Gran Abs Auto 0.02 X10*3/uL (0.00-0.03); Imm Gran Pct Auto 0.2 % (0.0-0.4); Lymphocytes Absolute Auto 1.2 X10*3/uL (1.2-4.9); Mean Corpuscular HGB Conc 32.0 g/dl (31.0-35.0); Mean Corpuscular Hemoglobin 30.7 pg (27.0-33.0); Mean Corpuscular Volume 95.8 fL (80.0-98.0); NRBC Abs Auto 0.000 X10*3/uL (0.0-0.012); NRBC Pct Auto 0.0 /100WBC (0.0-0.2); Platelet Count 185 X10*3/uL (160-400); Red Blood Count 4.50 X10*6/uL (4.20-5.50); White Blood Count 8.5 X10*3/uL (4.8-10.8)
[2025-04-08 14:06] LABS: Alanine Aminotransferase 13 U/L (0-31); Albumin Level 4.2 g/dL (3.5-5.0); Alkaline Phosphatase 80 U/L (39-117); Anion Gap 11 (12-20); Aspartate Amino Transferase 28 U/L (5-31); Blood Urea Nitrogen 31 mg/dL (9-16); Calcium 9.7 mg/dL (8.4-10.2); Carbon Dioxide 30 mmol/L (22-29); Chloride 103 mmol/L (96-108); Estimated Glomerular Filt Rate 44; Potassium 4.4 mmol/L (3.3-5.1); Sodium 140 mmol/L (135-145); Total Protein 7.3 g/dL (6.5-8.0)
== END 2025-04-08 10:40 | disposition home or self-care (01) ==
LOC: HO.MANLDS 10:39
PROVIDERS: Visit Provider Internal Medicine
DX: I10 Essential (primary) hypertension (principal); E11.9 Type 2 diabetes mellitus without complications
CPT/HCPCS: 36415; 80053; 82306; 83036; 85025